=== PATIENT | female | born 1965 | race Caucasian/White ===

== ENCOUNTER 2025-07-26 15:08 | Outpatient (CLI) | payer BC, SELFPAY ==
--- NOTE | ~2025-07-26 | US_ITS ---
EXAMINATION:US venous doppler LE RT INDICATION:Pain in right leg TECHNIQUE: Multiple grayscale, color flow and Doppler images of the right lower extremity deep venous systems were obtained and reviewed. COMPARISON:None FINDINGS: The common femoral, superficial femoral and popliteal veins demonstrate normal respiratory variation, augmentation and compressibility. Color flow is also seen within the posterior tibial, peroneal, greater saphenous and profunda veins. IMPRESSION: 1: No right lower extremity deep venous thrombosis. Reviewed, dictated and finalized at location Q.
--- OUTSIDE RECORDS SUMMARY | 2025-07-26 16:28 | XMS_ITS | Clinical Summary ---
Author Organization [facility] Address [address] [place] [place] [address] Care Team Providers Care Bottle Selector Name Role Phone Unavailable Primary Care Provider Unavailabl e Source Comments [facility],non-owned Affiliates and Associated Physician Practices is amultiple site organization consisting of ambulatory clinics and hospital sitesin [place], [place], [place] and [place]. This disclosure is being madepursuant to the Care Everywhere program and may not contain all information available regarding this patient. Last updated 18.[facility] [employer] Allergies No known active allergies Medications * Be aware that medications may not be up to date on this document. Alwaysverify current medications with the patient. No known medications Social History Tobacco Use Types Packs/Day Years Used Date Smoking Tobacco: Never Smokeless Tobacco: Never Alcohol Use Standard Drinks/Week Comments Yes 0 (1 standard drink = 0.6 oz pur e alcohol) Comments Unknown Sex and Gender Information Value Date Recorded Sex Assigned at Not on file Legal Sex Female 8:49 AM BUSINESS SERVICES MANAGER Gender Identity Not on file Sexual Orientation Not on file Last Filed Vital Signs Vital Sign Reading Time Taken Comments Blood Pressure 118/76 09/26/2019 2:08 PM BUSINESS SERVICES MANAGER Pulse 82 09/26/2019 2:08 PM BUSINESS SERVICES MANAGER Temperature 37.1 C (98.7 F) 09/26/2019 2:08 PM BUSINESS SERVICES MANAGER Respiratory Rate 16 09/26/2019 2:08 PM BUSINESS SERVICES MANAGER Oxygen Saturation 98% 09/26/2019 2:08 PM BUSINESS SERVICES MANAGER Inhaled Oxygen Concentration - - Weight 71.2 kg (157 lb) 09/26/2019 2:08 PM BUSINESS SERVICES MANAGER Height 162.6 cm (5' 4) 09/26/2019 2:08 PM BUSINESS SERVICES MANAGER Body Mass Index 26.95 09/26/2019 2:08 PM BUSINESS SERVICES MANAGER Plan of Treatment Health Maintenance Due Date Last Done Comments COLOGUARD (AGES 45-75) - COL ON CA SCREENING 1964 COLON MONITORING 1964 COLONOSCOPY - COLON CA SCREENING 1964 CT COLONOGRAPHY - COLON CA SCREENING 1964 Colorectal Cancer Screening 1964 FIT - COLON CA SCREENING 1964 FLEX SIG - COLON CA SCREENING 1964 LIPID TESTING 1964 MAMMOGRAM 1964 HIV SCREENING 1979 HEPATITIS C SCREENING 03/18/1982 DTAP/TDAP/TD VACCINES (1 - Tdap) 1983 PNEUMOCOCCAL VACCINE 50+ (1 of 1 - PCV) 2014 ZOSTER VACCINE (1 of 2) 2014 SCREENING FOR DIABETES 09/26/2019 COVID-19 VACCINE (1 - 2023-2 5 season) 2024 DEPRESSION SCREENING 11/17/2024 INFLUENZA VACCINE (#1) 2025 Respiratory Syncytial Virus (RSV) Vaccine Pt: or over 60 yrs (1 - 1-dose 75+ series) 2039 HEPATITIS B VACCINE Aged Out No longe r eligible based on patient's age to complete this topic HIB VACCINE Aged Out No longer eligi ble based on patient's age to complete this topic HPV VACCINE Aged Out No longer eligi ble based on patient's age to complete this topic MENINGOCOCCAL (Group B) VACC INE SHARED DECISION-MAKING Aged Out No longer eligibl e based on patient's age to complete this topic MENINGOCOCCAL GROUPS A/C/Y/W VACCINE Aged Out No longer eligible b ased on patient's age to complete this topic Insurance [employer]
--- OUTSIDE RECORDS SUMMARY | 2025-07-26 16:28 | XMS_ITS | Patient Health Record ---
Author Organization [facility] Address [address] [place] [address] Care Team Providers Care Code Number Stamper Name Role Phone Fredis Chacon Primary Care Provider [phone] Mannie Bui Unavailable [phone] Reason For Referral No Information Plan Of Treatment No Information
--- OUTSIDE RECORDS SUMMARY | 2025-07-26 16:28 | XMS_ITS | Clinical Summary ---
Author Organization [facility] Address [address] [place] [address] Phone Care Team Providers Care Feather Baler Name Role Phone Jennifer Wray MD Primary Care Provider [phone] Allergies No known active allergies Medications IBUPROFEN, BULK, MISCIndications: Inversion, nipple,Nipple discharge,Mastal marielena by Misc.(Non-D rug; Combo Route) route. Active Active Problems Patient Care Coordination No te Formatting of this note migh t be different from the original. Primary Care: González Albarran MD Referring Provider: Tena Pan MD [address] [place] [id number] Other: Problem Noted Date Diagnosed Date Arthritis Encounters Date Type Department Care Team Description 06/21/2025 External Device Data ST[facility] ABSTRACTION Provider, Abstract 05/10/2025 External Device Data [facility] ABSTRACTION Provider, Abstract from Last 3 Months Family History Medical History Relation Name Comments Cancer Maternal Grandfather brain Heart Disease Paternal Grandfather Breast Cancer Neg Hx Ovarian Cancer Neg Hx Relation Name Status Comments Maternal Grandfather Paternal Grandfather Social History Tobacco Use Types Packs/Day Years Used Date Smoking Tobacco: Never Smokeless Tobacco: Never Alcohol Use Standard Drinks/Week Comments Yes 0 (1 standard drink = 0.6 oz pur e alcohol) moderate Comments No Sex and Gender Information Value Date Recorded Sex Assigned at Not on file Legal Sex Female 4:29 AM CATALYST UNIT OPERATOR Gender Identity Not on file Sexual Orientation Not on file Occupation Industry Job Start Date Job End Date Not on file Not on file Not on file Not on file Not on file Not on file Not on file Not on file Last Filed Vital Signs Vital Sign Reading Time Taken Comments Blood Pressure 119/78 09/25/2012 3:17 PM CATALYST UNIT OPERATOR Pulse 58 08/14/2012 11:08 AM CDT Temperature - - Respiratory Rate - - Oxygen Saturation - - Inhaled Oxygen Concentration - - Weight 67.6 kg (149 lb) 09/25/2012 3:17 PM CATALYST UNIT OPERATOR Height 161.3 cm (5' 3.5) 09/25/2012 3:17 PM CATALYST UNIT OPERATOR Body Mass Index 25.98 09/25/2012 3:17 PM CATALYST UNIT OPERATOR Plan of Treatment Health Maintenance Due Date Last Done Comments DTAP/TDAP/TD VACCINES (1 - Tdap) 1983 HPV/Cotest (21-29) 1985 CERVICAL CANCER SCREENING 1994 HPV/Cotest (30-65) 1994 PAP SMEAR 1994 COLORECTAL SCREENING 2009 Colorectal Cancer Screening 2009 FIT-DNA Q 3 years 2009 FIT/FOBT Q 1 year 2009 Flex Sig/CT Colonography Q 5 years 2009 ZOSTER VACCINE (1 of 2) 2014 INFLUENZA VACCINE (#1) 2025 BREAST CANCER SCREENING 08/31/2025 08/31/20 24, 07/11/2023, 05/07/2022, Additional history exists RSV VACCINE (60+ or ) (1 - 1-dose 75+ series) 2039 Procedures Procedure Name Priority Date/Time Associated Diagnosis Comments MAMMO 3D SOL SCREEN BILAT W OR WO CAD Routine 08/31/2024 7:22 AM CDT Visit for screening mammogram from Last 3 Months or Most Recently Relevant to Health Maintenance Results * MAMMO 3D SOL SCREEN BILAT W OR WO CAD (08/31/2024 7:22 AM CDT) Anatomical Region Laterality Modality Breast Bilateral Mammography 08/31/2024 7:22 AM CDT Impressions 08/31/2024 7:41 AM CDT IMPRESSION: No mammographic evidence of malignancy. RECOMMENDATIONS: Routine screening mammogram in one year. DICTATION LOCATION: [facility] 08/31/2024 7:41 AM CDT BILATERAL FULL-FIELD DIGITAL SCREENING MAMMOGRAM WITH CAD WITH 3D TOMOSYNTHESIS DATE: 08/31/2024 7:22 AM HISTORY: Routine screening. TECHNIQUE: Full-field digital craniocaudal and mediolateral oblique projections of both breasts were obtained. Low-dose full-field digital breast tomosynthesis examination was performed with 2D and 3D acquisitions. Examination is read in conjunction with computer aided detection. COMPARISON: 2022, 2021, 2020. BREAST COMPOSITION: There are scattered areas of fibroglandular density. FINDINGS: No suspicious mass, suspicious microcalcifications, or architectural distortion in either breast is identified. Since the prior study, there has been no significant interval change. The computer aided diagnosis detects no significant abnormality. OVERALL FINAL ASSESSMENT: BI-RADS CATEGORY 1 : Negative. Procedure Note Etienne Nix MD - 08/31/2024 BILATERAL FULL-FIELD DIGITAL SCREENING MAMMOGRAM WITH CAD WITH 3D TOMOSYNTHESIS DATE: 08/31/2024 7:22 AM HISTORY: Routine screening. TECHNIQUE: Full-field digital craniocaudal and mediolateral oblique projections of both breasts were obtained. Low-dose full-field digital breast tomosynthesis examination was performed with 2D and 3D acquisitions. Examination is read in conjunction with computer aided detection. COMPARISON: 2022, 2021, 2020. BREAST COMPOSITION: There are scattered areas of fibroglandular density. FINDINGS: No suspicious mass, suspicious microcalcifications, or architectural distortion in either breast is identified. Since the prior study, there has been no significant interval change. The computer aided diagnosis detects no significant abnormality. OVERALL FINAL ASSESSMENT: BI-RADS CATEGORY 1 : Negative. IMPRESSION: No mammographic evidence of malignancy. RECOMMENDATIONS: Routine screening mammogram in one year. DICTATION LOCATION: [facility] Tena Pan MD MAMMO ORDERABLES Final Result from Last 3 Months or Most Recently Relevant to Health Maintenance Insurance BCBS BLUE ACCESS/TRUE BLUE PPO RX PRIME [employer]ER[employer] Commercial Care Teams Feather Baler Relationship Specialty Start Date End Date Jennifer Wray MD [address] [place] [address] PCP - General Family Practice 04/08/18
--- OUTSIDE RECORDS SUMMARY | 2025-07-26 16:28 | XMS_ITS | Clinical Summary ---
Author Organization [facility] [address] Address [address] [address] Care Team Providers Care Stave And Bolt Equalizer Name Role Phone Tena Pan MD Unavailable [phone] Jennifer Wray MD Primary Care Provider [phone] Allergies No known active allergies Medications No known medications Active Problems No known active problems Encounters Date Type Department Care Team Description 06/02/2025 3:00 PM CDT Office Visit [facility] [address] [address] Tena Pan MD Encounter for well woman exam with routine gynecological exam (Primary Dx) from Last 3 Months Surgical History Surgery Date Site/Laterality Comments BREAST BIOPSY Left benign cysts in 2000 and 2007, Dr. Chaidez SECTION, LOW TRANSVERSE 1988 and 1999, Dr. Bahena Family History Medical History Relation Name Comments Brain cancer Maternal Grandfather Relation Name Status Comments Maternal Grandfather Social History Tobacco Use Types Packs/Day Years Used Date Smoking Tobacco: Never Passive Smoke Exposure: Never Smokeless Tobacco: Never Tobacco Cessation:Counseling Given: Not Answered Comments No Sex and Gender Information Value Date Recorded Sex Assigned at Not on file Legal Sex Female 1:39 AM BLACKSMITH FARM Gender Identity Not on file Sexual Orientation Not on file Obstetrics History Para Term AB IAB SAB Ectopic Multiple Livin g Live Births 2 2 2 2 Date Outcome GA Total Labor Labor/2nd/3rd Weight Sex Type Anes PTL Raeann A1 A5 Name Clin Para CS-LTra nv Para CS-LTra nv Comments C/S x 2, 1988 and 1999, both with Dr. Kaya Bahena Last Filed Vital Signs Vital Sign Reading Time Taken Comments Blood Pressure 134/86 06/02/2025 2:57 PM CDT Pulse 87 02/21/2024 3:42 PM CDT Temperature 37.1 C (98.8 F) 02/21/2024 3:42 PM CDT Respiratory Rate 18 02/21/2024 3:42 PM CDT Oxygen Saturation 96% 02/21/2024 3:42 PM CDT Inhaled Oxygen Concentration - - Weight 70.9 kg (156 lb 3.2 oz) 06/02/2025 2:57 P M CDT Height 162.6 cm (5' 4) 06/02/2025 2:57 PM CDT Body Mass Index 26.81 06/02/2025 2:57 PM CDT Plan of Treatment Health Maintenance Due Date Last Done Comments Colon Cancer Screening-Colonoscopy 1964 Depression Screening 1964 Hepatitis C Screening 1964 DTaP/Tdap/Td Vaccine (1 - Tdap) 1975 Hepatitis B Screening 1982 Zoster Vaccine (1 of 2) 2014 Covid-19 Vaccine (3 - season) 2025 08/15/2021, 07/25/2021 Influenza Vaccine (#1) 2025 07/13/2014 Breast Cancer Screening-Mammogram 08/31/2025 08/31/2024, 08/31/2024, 07/11/2023, Additional history exists Cervical Cancer Screening 06/02/20262024, 01/12/2024, 11/25/2022, Additional history exists Regular Well Visit/Exam 18-64 06/02/2026 06/02/2025, 01/12/2024, 11/25/2022, Additional history exists Pneumococcal vaccine <65 Aged Out No longer eligible based on patient's age to complete this topic Procedures Procedure Name Priority Date/Time Associated Diagnosis Comments THINPREP IMAGING PAP AND HPV MRNA E6/E7 REFLEX HPV 16,18/45 Routine 06/02/2025 3:51 PM CDT Encounter for well woman exam with routine gynecological exam SCREENING MAMMOGRAM BILATERAL W FINESSE Schedule Routine, Read Routine (OP Routine) 05/07/2022 from Last 3 Months or Most Recently Relevant to Health Maintenance Results * ThinPrep(R) Imaging Pap and HPV mRNA E6/E7 Reflex HPV 16,18/45 (06/02/2025 3:51 PM CDT) CLINICAL INFORMATION: [facility] Comment:None given LMP [facility] Comment:NONE GIVEN Previous Pap [facility] Comment:NONE GIVEN Prev. Bx [facility] Comment:NONE GIVEN SOURCE: [facility] Comment:None given Pap, specimen adequacy [facility] Comment:SATISFACTORY FOR ALMA LUATION HPV interp [facility] Comment: Cytology Results: Negative for intraepithelial lesion or malignancy. Atrophic pattern; predominantly parabasal cells COMMENTS [facility] Comment: This Pap test has been evaluated with the ThinPrep(R) Imaging System. Dredge Pipeman Que [facility] Comment: YQ, CT(ASCP) CT Screening Location: [place] [address] [place] [address] CLIA: [id number] Slide preparation performed at: [employer] [facility], [address] [place] [address], [address] CLIA: [id number] Comment [facility] Comment: EXPLANATORY NOTE: The Pap is a screening test for cervical cancer. It is not a diagnostic test and is subject to false negative and false positive results. It is most reliable when a satisfactory sample, regularly obtained, is submitted with relevant clinical findings and history, and when the Pap result is evaluated along with historic and current clinical information. Human papillomavirus RNA, High Risk E6/E7 Not Detected Not Detected [facility] Comment: Methodology: Access Lead-Mediated Amplification This assay detects E6/E7 viral messenger RNA (mRNA) from 14 high-risk HPV types (16,18,31,33,35,39,45,51,52,56,58,59,66,68). Cervical sources are required for HPV testing. If a vaginal source from a patient who has had a total hysterectomy with removal of cervix was submitted, please contact the testing laboratory for alternative testing options. For additional information, please refer to http://education.SpiceCSM/faq/DVG980t3 (This link if provided for information/ educational purposes only.) Swab (Cervical) 06/02/2025 3 :51 PM CDT 06/03/2025 8:24 PM CDT Tena Pan MD LAB CYTOLOGY ORDERABLES F inal Result [facility] [address] [place] [address] [address] * Screening Mammogram Bilateral W [place] (05/07/2022) Anatomical Region Laterality Modality Breast Bilateral Mammography Tena Pan MD IMG MAMMO PROCEDURES Carmen l Result from Last 3 Months or Most Recently Relevant to Health Maintenance [place] [employer] [place] [employer] [place] [facility] Care Teams Stave And Bolt Equalizer Relationship Specialty [place] [address] [place] [address] PCP - General Family Medicine 11/22/21 [place] [address] [place] [address] Consulting Physician Obstetrics and Gynecology 11/12/21
== END 2025-07-26 15:09 | disposition home or self-care (01) ==
PROVIDERS: PCP Family Medicine; Visit Provider Family Medicine
DX: M79.604 Pain in right leg (principal); M79.89 Other specified soft tissue disorders
CPT/HCPCS: 93971